=== PATIENT | female | born 2000 | race Caucasian/White ===

== ENCOUNTER 2022-01-26 09:23 | Outpatient (CLI) | payer BC, SELFPAY ==
--- NOTE | 2022-01-26 10:00 | CRLHL7_ITS ---
For Patients: As a result of the Century Cures Act, medical imaging exams and procedure reports are released immediately into your electronic medical record. You may view this report before your referring provider. If you have questions, please contact your health care provider. Indication: ABDOMINAL CRAMPS, CONSTIPATION Technique: Postcontrast CT abdomen and pelvis. Oral water. 66 cc Isovue 370 intravenous contrast. Please note that all CT scans at this facility use dose modulation, iterative reconstruction, and/or weight-based dosing when appropriate to reduce radiation dose to as low as reasonably achievable. Comparison: None Findings: Lung bases are clear. No infiltrate or effusion. Normal liver. Normal gallbladder. No calcified gallstones or biliary obstruction. No stigmata of cirrhosis. Pancreas and spleen normal. Normal adrenal glands and kidneys. No bowel obstruction or free air. No access free-fluid or adenopathy. Normal appendix. IUD centrally located in the uterus. Normal ovaries. Normal bladder. Osseous structures are within normal limits. A moderate amount of stool is present throughout the colon. Impression: Moderate diffuse colonic stool suggesting constipation. No mechanical obstruction or inflammatory change. Please note that all CT scans at this facility use dose modulation, iterative reconstruction, and/or weight-based dosing when appropriate to reduce radiation dose to as low as reasonably achievable. Dictated by Robson Pak MD @ 01/26/2022 11:57:30 AM (Electronically Signed)
== END 2022-01-26 09:24 | disposition home or self-care (01) ==
LOC: CT 09:26
PROVIDERS: Visit Provider Physician Assistant
DX: K59.00 Constipation, unspecified (principal); R10.9 Unspecified abdominal pain; R11.0 Nausea; R63.4 Abnormal weight loss
CPT/HCPCS: 74177; Q9967